=== PATIENT | male | born 1950 | race Caucasian/White ===

== ENCOUNTER 2024-05-10 06:39 | Day surgery (SDC) | payer OTHER ==
--- NOTE | 2024-05-09 09:53 | EKG ---
[facility] Test Date: 2024-05-09 Test Time: 10:45:49 Pat Name: ZAIN MANLEY Department: [facility] Room: Gender: M [employer] Operator: [id number] : 1950 Requested By: BG CHAMBERLAIN Order Number: [id number] Reading MD: Tiffanie Jordan Measurements Intervals [place] Rate: 50 P: -22 MD: 193 QRS: 67 QRSD: 92 T: 171 QT: 489 QTc: 446 Interpretive Statements Sinus rhythm Abnrm T, probable ischemia, anterolateral lds No previous ECG available for comparison Electronically Signed On 05-09-2024 10:35:02 [employer] by Tiffanie Jordan Please click the below link to view image of tracing.
[2024-05-09 10:01] LABS: BASOPHILS # (AUTO) 0.11 K/uL (0.00-0.20); BASOPHILS % (AUTO) 1.3 % (0.0-5.0); EOSINOPHILS # (AUTO) 0.86 K/uL (0.00-0.70); EOSINOPHILS % (AUTO) 10.6 % (0.0-8.0); HEMATOCRIT 38.5 % (42-54); IMMATURE GRANULOCYTE ABSOLUTE 0.02 K/uL (0-1); LYMPHOCYTES # (AUTO) 1.6 K/uL (1.0-4.8); MEAN CORPUSCULAR HEMOGLOBIN 31.7 pg (27.0-33.0); MONOCYTES # (AUTO) 0.9 K/uL (0.1-1.0); NEUTROPHILS # (AUTO) 4.6 K/uL (1.8-7.7); NEUTROPHILS % (AUTO) 56.9 % (40.0-77.0); PLATELET COUNT (AUTO) 175 K/uL (130-400); RED BLOOD CELL COUNT(AUTO) 4.01 MIL/uL (4.50-6.20); RED CELL DISTRIBUTION WIDTH 13.2 % (11.0-15.5); WHITE BLOOD COUNT (AUTO) 8.2 K/uL (4.8-10.8)
[2024-05-09 10:02] LABS: APPEARANCE,URINE CLEAR (CLEAR); BILIRUBIN,URINE NEGATIVE (NEGATIVE); COLOR,URINE COLORLESS (YELLOW); GLUCOSE, URINE (UA) NEGATIVE (NEGATIVE); KETONES,URINE NEGATIVE (NEGATIVE); LEUKOCYTE ESTERASE ,URINE NEGATIVE Leu/uL (NEGATIVE); NITRATE,URINE NEGATIVE (NEGATIVE); OCCULT BLOOD,URINE NEGATIVE (NEGATIVE); PROTEIN,URINE NEGATIVE (NEGATIVE); UROBILINOGEN,URINE 0.2 mg/dL (0.2-1.0)
[2024-05-09 10:03] LABS: ADD UA MICROSCOPIC NO
[2024-05-09 10:07] LABS: POTASSIUM 4.8 mmol/L (3.5-5.1)
[2024-05-09 10:10] LABS: INR 0.98 (0.85-1.15)
[2024-05-09 10:12] VITALS: BP 110/71; PULSE 51; RESP 17; TEMP 97.2
[2024-05-09 10:12] LABS: PARTIAL THROMBOPLASTIN TIME 27.5 SEC (26.3-35.5)
[2024-05-09 10:28] LABS: B-TYPE NATRIURETIC PEPTIDE 249 pg/mL (0-100)
--- NOTE | 2024-05-09 10:50 | HMCIMG ---
Exam Type: CHEST 1VW Clinical Information: PREOP Comparison: None Findings: The lungs are clear of infiltrates. The heart is normal in size. The bony and soft tissue structures of the chest are unremarkable. Impression: Clear lungs.
[~2024-05-10] VITALS: Ht 177.8 cm; Wt 73.6 kg
[2024-05-10] VITALS (17 sets, daily range): BP systolic 80–103; BP diastolic 47–67; PULSE 45–52; RESP 13–16; TEMP 97.2–97.4
[~2024-05-10 06:39] MED LIST: ASPI-1443 PO; LOSA25TA41 PO; METO-409 PO; ROSU40TA88 PO; TICA90TA PO
[2024-05-10] MEDS: 0.9%NACL 1000ML 1,000 ML IV SCH (07:38)
[2024-05-10] MEDS ORDERED: LIDOCAINE HCL 400MG/20ML VIAL ONE (08:18)
[2024-05-10] MEDS ORDERED: SODIUM BICARB 50MEQ 50ML VIAL 50 ML ONE (08:18)
[2024-05-10] MEDS ORDERED: FENTanyl CITRate PF 50 MCG/1 ML 2ML VIAL ONE (08:19)
[2024-05-10] MEDS ORDERED: MIDAZOLAM HCL 1 MG/ML 2ML VIAL ONE (08:19)
[2024-05-10] MEDS ORDERED: HEParin-NS 1,000 UNIT/500 ML 1,000 ML IV ONE (08:19)
[2024-05-10] MEDS ORDERED: niCARDIpine 25MG INJ IV ONE (08:19)
[2024-05-10] MEDS ORDERED: HEParin 10,000 UNIT/10ML (1,000 UNIT/ML) VIAL ONE (08:19)
[2024-05-10] MEDS ORDERED: IOHEXOL 350 MG/ML 100ML INFUS..BTL IV ONE (08:19)
[2024-05-10] MEDS ORDERED: IOHEXOL-350 75 ML VIAL IV ONE (08:19)
[2024-05-10] MEDS ORDERED: NITROGLYCERIN 50MG VIAL ONE (08:20)
--- NOTE | 2024-05-10 09:25 | PRN ---
Diagnostic Coronary Angiogram From Radial Approach Indication: Persistent class three dyspnea and chest pressure after recent coronary stent for myocardial infarct Technique: The patient was brought to the dental laboratory technician in a fasting state and giovany rile preparation was made in usual fashion. The patient had been explained risks and benefits of the procedure and accepted prior to this procedure. Patient was sedated with 1 mg Versed and 50 mcg fentanyl. Under local anesthesia with 1% lidocaine the right radial artery was entered percutaneously and a 5/6 Mauritian Terumo radial sheath was advanced into the vessel. A cocktail of 5000 units aqueous heparin, 200 mcg Cardene and 200 mcg nitroglycerin was administered via radial arterial injection. Aggressive hydration was carried out for hypotension induced by this cocktail. A 6 Mauritian TIGG catheter was advanced to the aortic root over a guidewire and the right coronary was cannulated for selective coronary arteriograms, then the left coronary was cannulated for selective left coronary arteriograms. An exchange was made for a 6 Mauritian pigtail using a guidewire and the left ventricle was cannulated. Left ventricular cineangiography was performed in CAMPOS projection and then a pullback recording was obtained. The catheter was removed over a guidewire. At the conclusion of the procedure arterial hemostasis was obtained by use of a Terumo radial band with excellent hemostasis and no complications.. The patient was transferred from the dental laboratory technician in stable condition. Results: A. Hemodynamics: LVEDP was three before angiography in four after. B. Ventriculography: Apical portion of the ventricle is somewhat rounded rather than conical, and there is an anteroapical/apical/inferoapical wall motion abnormality; EF is 45%. Mitral valve is competent. C. Coronary arteriography: Right coronary supplies posterior descending and two posterolateral and is free of disease. Left main is free of disease. Ramus intermedius arises from the origin of the LAD and courses over the anterolateral wall and is notable for a previously placed stent with no residual narrowing. Left anterior descending is notable for a 50% mid LAD stenosis which does not appear obstructive. Distally the LAD rounds the apex and is free of additional disease. Left circumflex supplies a small ramus like branch, two large obtuse marginals and an inferolateral branch and is free of disease. Conclusions: It is possible dyspnea on exertion and chest discomfort could be from Brilinta, as it does not appear likely that a 45% ejection fraction or a 50% lad lesion would cause these symptoms. If switching from Brilinta to clopidogrel does not resolve the symptoms, we may consider IFR on the LAD and potential stenting of the LAD. BG CHAMBERLAIN MD May 10, 2024 09:25
[2024-05-10] MEDS ORDERED: 0.9%NACL 1000ML 1,000 ML IV SCH (09:30)
[2024-05-10] MEDS: cloPIDOgrel 300MG TAB PO ONE (09:30)
[2024-05-11] MEDS ORDERED: ASPIRIN 81 MG EC TAB PO SCH (09:00)
[2024-05-11] MEDS ORDERED: atorVAStatin 40 MG TABLET PO SCH (09:00)
[2024-05-11] MEDS ORDERED: LoSARTan 25 MG TABLET PO SCH (09:00)
[2024-05-11] MEDS ORDERED: metOPROLol sucCINATE 50 MG TAB.SR.24H PO SCH (09:00)
== END 2024-05-10 14:00 | disposition home or self-care (01) ==
LOC: DAH 06:39
PROVIDERS: ATTEND Internal Medicine Cardiovascular Disease
DX: I25.118 Atherosclerotic heart disease of native coronary artery with other forms of angina pectoris (principal); R06.09 Other forms of dyspnea; I25.2 Old myocardial infarction; I10 Essential (primary) hypertension; E78.5 Hyperlipidemia, unspecified; Z82.49 Family history of ischemic heart disease and other diseases of the circulatory system; Z79.01 Long term (current) use of anticoagulants; Z79.899 Other long term (current) drug therapy
CPT/HCPCS: 80048; 83880; 85025; 85610; 85730; 81003; 36415; 71045; 93005; 93458; C1769 ×2; C1894; A4649; J3010; J3490 ×4; J1644 ×2; J2250; Q9967 ×2; A4215; A4222; A4221; A4663; A4216; A4606; Q9965; A4223 ×3; 96360; 96361; 99156; 99157

== ENCOUNTER → 2024-06-07 | Outpatient (CLI) | payer OTHER ==
[~2024-06-07] MED LIST changes: -TICA90TA PO
[2024-06-07 12:49] LABS: CREATININE 0.8 mg/dL (0.5-1.3); MAGNESIUM 2.3 mg/dL (1.80-2.40); POTASSIUM 4.4 mmol/L (3.5-5.1)
== END | disposition home or self-care (01) ==
LOC: LAB 10:46
PROVIDERS: ATTEND Internal Medicine Cardiovascular Disease
DX: I11.0 Hypertensive heart disease with heart failure (principal); I50.22 Chronic systolic (congestive) heart failure; I25.2 Old myocardial infarction; I25.10 Atherosclerotic heart disease of native coronary artery without angina pectoris
CPT/HCPCS: 36415; 80048; 83735